=== PATIENT | female | born 1985 | race Caucasian/White ===

== ENCOUNTER 2016-06-17 07:31 | Observation (INO) | payer OTHER ==
--- NOTE | 2016-06-17 11:57 | GHP ---
[f rep st] HISTORY AND PHYSICAL DATE OF ADMISSION: 06/17/2016 ADMITTING DIAGNOSES: 1. Intrauterine at 25 weeks 6 days. 2. Vaginal bleeding in . HISTORY OF PRESENT ILLNESS: The patient is a 30-year-old, 1, para 0, at 25 and 6/7 weeks with an estimated due date 09/24/2016 by LMP and confirmed by first trimester u/s. is by IUI. Patient is in a same-sex relationship. Patient presents to Labor and Delivery with complaints of vaginal bleeding, bright red, staining her underwear, larger than a quarter size this a.m. Denies any cramping or belly pain. Good movement noted. Patient does get care at [facility] and states is uncomplicated thus far. Patient thought she had a yeast infection 3 days ago. She was complaining of an external itch, but did not really notice an odor or any abnormal discharge. She called her doctor, and was told to try [id number] Monistat. Patient had used Monistat once and then started having some brownish discharge and then pinkish to bright red. Patient is AB-positive and, on 20- week ultrasound, had a posterior placenta without evidence of a previa or vasa previa. PAST OBSTETRICAL HISTORY: Patient is primiparous. PAST GYNECOLOGICAL HISTORY: Patient denies any history of abnormal Pap smears or any exposure to sexually transmitted diseases. PAST MEDICAL HISTORY: Thyroid disease. PAST SURGICAL HISTORY: Right inguinal hernia. MEDICATIONS: Include vitamins and levothyroxine 25 mcg. ALLERGIES: No known drug allergies. SOCIAL HISTORY: Patient is in a same sex relationship. She is a therapist. Denies any alcohol, tobacco, or illicit drug use. LABORATORY/STUDIES: There are no labs, no studies. PHYSICAL EXAMINATION: GENERAL: VSS, afebrile. Well-nourished and well developed female in no apparent distress. ABDOMEN: Gravid, soft, nontender. GENITOURINARY: On pelvic exam, there is no bright red bleeding noted and no active bleeding; no blood clots seen in the vault, just some brownish discharge. Cervix appeared closed, but did appear friable. No lesions or lacerations noted. No evidence of a yeast infection noted. heart tracing is category 1, reactive. Baseline of 140 bpm, positive accels, no decels, and moderate variability. On toco, there is some uterine irritability but no contractions. ASSESSMENT: Patient is a 30-year-old, 1, para 0 at 25 and 6/7 weeks who presents with vaginal bleeding PLAN: 1. Pt is stable and had an unremarkable pelvic exam; no signs of abruption. 2. Reassured patient that bleeding most likely from use of the applicator for Monistat. 3. Patient is stable for d/c home. 4. Given discharge instructions. Recommend pelvic rest until seen by [facility] on June 22. She is to take it easy. Increase fluids. 5. labor precautions given. 6. Given a note to excuse her from work today and tomorrow. /[id number]/MODL MTDD
== END 2016-06-17 10:35 | disposition home or self-care (01) ==
LOC: FLD 07:31
PROVIDERS: ADMIT Obstetrics & Gynecology; ATTEND Obstetrics & Gynecology
DX: N93.9 Abnormal uterine and vaginal bleeding, unspecified (principal); O09.812 Supervision of pregnancy resulting from assisted reproductive technology, second trimester; Z3A.25 25 weeks gestation of pregnancy
CPT/HCPCS: G0378 ×2

== ENCOUNTER 2016-09-23 13:14 | Emergency (ER) | payer OTHER ==
[2016-09-23 13:22] VITALS: TEMP 97.9; O2SAT 97
[2016-09-23 14:07] LABS: % IMMATURE GRANULYOCYTES 0.4 % (0.0-1.1); ABSOLUTE IMMATURE GRANULOCYTES 0.04 10^3/uL (0.00-0.10); ADD DIFF? NO; ADD MORPH? NO; ADD SCAN? NO; ATYPICAL LYMPHOCYTE FLAG 0 (0-99); FRAGMENT RBC FLAG 0 (0-99); HEMATOCRIT 42.3 % (38.0-47.0); HEMOGLOBIN 14.5 g/dL (12.6-16.3); LEFT SHIFT FLG 0 (0-99); LIPEMIA HEMOLYSIS FLAG 90 (0-99); MEAN CELL HEMOGLOBIN 31.9 pg (27.9-34.1); MEAN CELL HEMOGLOBIN CONCENTR. 34.3 g/dL (32.4-36.7); MEAN CELL VOLUME 93.2 fL (81.5-99.8); MEAN PLATELET VOLUME 9.5 fL (8.7-11.7); PLATELET CLUMPS FLAG 0 (0-99); PLATELET COUNT 311 10^3/uL (150-400); RED BLOOD CELL COUNT 4.54 10^6/uL (4.18-5.33); RED CELL DISTRIBUTION WIDTH 12.4 % (11.5-15.2)
[2016-09-23 14:15] LABS: ALANINE AMINOTRANSFERASE 50 IU/L (9-52); ALBUMIN 3.8 g/dL (3.5-5.0); ALKALINE PHOSPHATASE 103 IU/L (38-126); ANION GAP 13 mEq/L (8-16); ASPARTATE AMINOTRANSFERASE 29 IU/L (14-46); BILIRUBIN,TOTAL 0.6 mg/dL (0.1-1.4); BILIRUBIN-CONJUGATED 0.2 mg/dL (0.0-0.5); BILIRUBIN-UNCONJUGATED 0.4 mg/dL (0.0-1.1); CALCIUM 9.2 mg/dL (8.5-10.4); CARBON DIOXIDE 19 mEq/l (22-31); CHLORIDE 108 mEq/L (97-110); CREATININE 0.6 mg/dL (0.6-1.0); GLOMERULAR FILTRATION RATE > 60; GLUCOSE 88 mg/dL (70-100); POTASSIUM 4.2 mEq/L (3.5-5.2); SODIUM 140 mEq/L (134-144); TOTAL PROTEIN 6.8 g/dL (6.3-8.2)
[2016-09-23 14:17] LABS: INR 1.02 (0.83-1.16); PROTIME(PATIENT) 13.3 SEC (12.0-15.0)
[2016-09-23 14:18] LABS: APTT 27.1 SEC (23.0-38.0)
--- NOTE | 2016-09-23 14:25 | EDPHY ---
H & P Stated Complaint: c sect tuesday/now with pain r lower abd Source: Patient, Family Exam Limitations: No limitations - Personal History LMP (Females 10-55): Over 28 Days Ago Current Tetanus/Diphtheria Vaccine: Yes - Medical/Surgical History Hx Asthma: No Hx Chronic Respiratory Disease: No Hx Diabetes: No Hx Cardiac Disease: No Hx Renal Disease: No Hx Cirrhosis: No Hx Alcoholism: No Hx HIV/AIDS: No Hx Splenectomy or Spleen Trauma: No Other PMH: inguinal hernia repair 1 month ago - Social History Smoking Status: Never smoked HPI/ROS: CHIEF COMPLAINT: Abdominal pain, recent HISTORY OF PRESENT ILLNESS: Patient complains of right-sided incisional abdominal pain. She had a 6 days ago. This was uncomplicated and scheduled. Baby is doing well. Since then she has had constipation which waxes and wanes. Her concern is a severe pain on the right side of the incision , consistent with her previous pain associated with an inguinal hernia. She has no diarrhea. No bloody stools or emesis. Her vaginal discharge has nearly resolved. She has no pelvic pain that she associates with the delivery. No fever. No vomiting. She feels the pain is directly related to the incision and not deeper than the incision pain No other associated complaints or modifying factors. REVIEW OF SYSTEMS: Ten systems reviewed and are negative unless otherwise noted in the HPI PAST MEDICAL HISTORY: Hypothyroid, postop day 6 from sustained section SOCIAL HISTORY: Nonsmoker FAMILY HISTORY: Noncontributory EXAMINATION General Appearance: Alert, no distress Head: normocephalic, atraumatic Eyes: Pupils equal and round, no conjunctival pallor or injection ENT, Mouth: Mucous membranes moist Neck: Normal inspection, supple, non-tender Respiratory: Lungs are clear to auscultation Cardiovascular: Regular rate and rhythm no murmur. Pulses intact distally Gastrointestinal: Abdomen is soft and nondistended. Low abdominal transverse incision is clean, dry and intact. Steri-Strips in place. No surrounding erythema. No induration. No purulence. No fluctuance. No dehiscence. Mild tenderness of the right aspect of the incision. Back: non-tender, no bony abnormalities Neurological: A&O, nonfocal, normal gait Skin: Warm and dry, no rash. No cellulitis or abscess Extremities: Nontender, no pedal edema Psychiatric: Mood and affect normal DIFFERENTIAL DIAGNOSES: Including but not limited to incisional hernia, seroma, postoperative hematoma, abscess, ileus, constipation, bowel obstruction, retain products of conception endometritis MDM: 2:20 p.m. Abdominal pain postop day 6 from Caesarean section. Vital signs stable. Nonacute abdomen. CT scan of the abdomen pelvis has been ordered. She is consulting her OB in post production assistant due to the IV contrast infusion and her breast feeding. 2:55 p.m. I have re-evaluated the patient. Graphics Production Specialist recommends to not Breastfeed for 24 hours. I discussed the case with Dr. Hunt. We are both in agreement that we should proceed with CT to of the abdomen pelvis without contrast. Some tenderness over the incision, but there is no dehiscence or signs of infection or abscess. She has no fever or severe abdominal pelvic pain that would suggest endometritis or retained products of conception. Proceed with CT scan without contrast to evaluate for the possibility of incisional hernia versus seroma 3:40 p.m. Contacted by radiologist Dr. Capellan. CT scan of the abdomen pelvis reveals expected postoperative changes. There are no acute findings noted. He does feel that this was an adequate study without IV contrast given the patient's scenario that we discussed. I have ordered an ultrasound of the pelvis to definitively rule out endometritis versus retained products of conceptions. I have virtually no clinical suspicion for the scenarios. She is resting comfortably in no acute distress. No abdominal pain at rest. Vital signs are all within normal limits. She continues to breast-feed in the room without any complaints at this time. 5:04 p.m. Notified by radiologist. No acute findings on the ultrasound. There is no evidence of retained products of conception. Patient remains pain-free. Vital signs were well within normal limits. She is discharged home with instructed to contact her primary care physician and OB physician she is comfortable with this plan. Return to ER for any fever, worsening pain, nausea, vomiting, constipation, bleeding or discharge. Discharged home in stable condition SUPERVISION: Patient was evaluated in conjunction with the supervising physician. Please see their note for details. (Favian Gooden) Constitutional: Initial Vital Signs Temperature (C) 36.6 C 09/23/16 13:20 Heart Rate 86 09/23/16 13:20 Respiratory Rate 18 09/23/16 13:20 Blood Pressure 142/98 H 09/23/16 13:20 O2 Sat (%) 97 08/03/17 13:20 O2 Delivery Mode Room Air Allergies/Adverse Reactions: No Known Allergies Allergy (Verified 09/23/16 13:19) Home Medications: Medication Instructions Recorded Levothyroxine [Synthroid 25 mcg 06/17/16 (*)] Colace 09/23/16 Ferrous Sulfate 09/23/16 Percocet 5/325 (*) 09/23/16 Medical Decision Making Other Provider: I evaluated and participated in the management of the patient. My co-signature indicates that I have reviewed this chart and I agree with thefindings and plan of care as documented. My personal H&P findings include: 30 year old female 6 days status post c section for breech presentation. C/O sharp pulling stabbing pain along lateral incision of c section scar. No fever, no vomiting, normal lochia, no foul discharge, no generalized pain. Eating and drinking well. nursing well. Patient with history of hernia repair at right inguinal region, concerned she may have tore the repair when straining for BM. On exam, looks well, no fever, normal vital signs. Mild tenderness to palpation along right lateral incision line, no discharge, no erythema. No guarding or rebound. CT scan without contrast largely unremarkable; no bowel obstruction, no fluid collection, no abscess. US demonstrates normal post uterus, no evidence of retained products. Will dc to home with follow up. Suspect may be incisional pain, stitch pain. ( Mya Hunt) - Data Points Laboratory Results: Laboratory Results 09/23/16 13:55 09/23/16 13:55 Departure - Departure Disposition: Home, Routine, Self-Care Clinical Impression: Postoperative abdominal pain Condition: Good Instructions: Surgical Site Infections (ED), Wound Healing and Your Diet (ED) Additional Instructions: 1. Follow up with your established OB physician 2. Return to the ER for fever, worsening pain, vaginal bleeding or discharge Referrals: Lu Corbett MD [Primary Care Provider] - As per Instructions
[2016-09-23 15:42] LABS: COLOR PALE YELLOW; LEUKOCYTE ESTERASE,URINE NEGATIVE (NEGATIVE); NITRITE,URINE NEGATIVE (NEGATIVE)
[2016-09-23 17:33] VITALS: BP 129/91; PULSE 81; RESP 16
== END 2016-09-23 17:33 | disposition home or self-care (01) ==
DX: G89.18 Other acute postprocedural pain (principal); R10.9 Unspecified abdominal pain

== ENCOUNTER → 2016-11-04 | Outpatient (CLI) | payer OTHER | LOC: FLACT 09:53 | PROVIDERS: ATTEND Obstetrics & Gynecology | DX: Z39.1 Encounter for care and examination of lactating mother (principal) | CPT/HCPCS: G0463 ==

== ENCOUNTER → 2017-12-20 | Outpatient (CLI) | payer OTHER ==
[~2017-12-20] MED LIST: IOPAMIDOL (ISOVUE-300) 100 ML BTL ONE
== END ==
LOC: FIMAGING 13:05
PROVIDERS: ATTEND Otolaryngology
DX: K11.5 Sialolithiasis (principal)
CPT/HCPCS: Q9967